=== PATIENT | female | born 1950 | race Caucasian/White ===

== ENCOUNTER → 2019-04-19 | Outpatient (CLI) | payer BC ==
--- NOTE | 2019-04-20 08:15 | RAD ---
Exam performed: X-ray lumbosacral spine. HISTORY: Low back pain extending into the left lower extremity. DATE OF SERVICE: 04/19/2019. COMPARISON: None FINDINGS: Scoliosis of the lumbar spine with rightward concavity seen. 5 nonrib-bearing vertebral bodies are identified. For the purposes of the study, left separate vertebral body is designated L5. Using this numbering scheme, there is grade 1 anterolisthesis of L5 over S1, the remainder sagittal alignment is preserved. The vertebral body heights are maintained. There is narrowing of several intervertebral disc spaces predominantly including T12/L1, L1/L2, L4/5 and L5/S1. No acute compression fracture deformity is seen. Multilevel bilateral apophyseal joint hypertrophic changes are seen predominantly at L4-5 and L5-S1. Atelectasis aortic calcification. Nonspecific bowel gas pattern. IMPRESSION: Moderate severe degenerative changes involving the lumbar spine as outlined above. Evaluation with MRI of the lumbar spine may be of additional benefit. Electronically signed by: Kell Newton MD (04/20/2019 8:12 AM) [place]
== END | disposition home or self-care (01) ==
LOC: PMG 08:42
DX: M47.26 Other spondylosis with radiculopathy, lumbar region (principal); M48.04 Spinal stenosis, thoracic region; M48.07 Spinal stenosis, lumbosacral region; M41.86 Other forms of scoliosis, lumbar region; J98.11 Atelectasis; I70.0 Atherosclerosis of aorta
CPT/HCPCS: 72100

== ENCOUNTER → 2019-06-09 | Outpatient (CLI) | payer BC ==
--- NOTE | 2019-06-09 16:05 | RAD ---
EXAM: Chest, 2 views. HISTORY: Cough. COMPARISON: 05/30/2019. FINDINGS: 2 views of the chest are obtained. There is no infiltrate, pleural effusion or pneumothorax. The heart is normal in size. There is a tortuous thoracic aorta. IMPRESSION: No acute pulmonary finding. Electronically signed by: Hansa Merchant MD (06/09/2019 4:02 PM) [facility]
== END | disposition home or self-care (01) ==
LOC: PMG 15:21
PROVIDERS: ATTEND Registered Nurse
DX: R05 Cough (principal)
CPT/HCPCS: 71046